=== PATIENT | female | born 1975 | race Caucasian/White ===

== ENCOUNTER 2016-07-11 22:27 | Emergency (ER) | payer SELFPAY ==
[2016-07-11 23:37] LABS: HEMOGLOBIN 13.7 gm/dl (14.0-17.5); RED BLOOD COUNT 4.39 M/UL (4.20-5.50)
[2016-07-12 00:17] LABS: BUN/CREATININE RATIO 18 (0-10)
== END 2016-07-12 01:05 | disposition home or self-care (01) ==
LOC: ER1 22:27 → EDSEX 22:27 → ER1 07-12 01:05
PROVIDERS: Family Medicine
DX: R51 Headache (principal); I10 Essential (primary) hypertension; E78.5 Hyperlipidemia, unspecified; R42 Dizziness and giddiness
CPT/HCPCS: 36415; 70450; 71010; 80053; 82550; 82553; 83874; 84484; 85025; 93005; 99285; J2405

== ENCOUNTER 2020-12-02 07:35 | Emergency (ER) | payer SELFPAY ==
[2020-12-02 08:17] LABS: HEMOGLOBIN 14.8 gm/dl (14.0-17.5); RED BLOOD COUNT 4.77 M/UL (4.20-5.50); WHITE BLOOD COUNT 7.8 K/UL (4.5-11.0)
[2020-12-02 08:37] LABS: BUN/CREATININE RATIO 18 (0-10)
[2020-12-02] MEDS ORDERED: CATAPRES 0.1MG0.1 MG PO (13:27)
== END 2020-12-02 13:35 | disposition home or self-care (01) ==
LOC: ER1 07:35
PROVIDERS: Physician Assistant Medical
DX: R07.9 Chest pain, unspecified (principal); I10 Essential (primary) hypertension; R51.9 Headache, unspecified; J45.909 Unspecified asthma, uncomplicated; Z90.89 Acquired absence of other organs
CPT/HCPCS: 70450; 71045; 80053; 81001; 82550; 82553; 83874; 84484; 85025; 93005; 96374; 96375; 99285; J2270; J2405; U0002